=== PATIENT | male | born 1955 | race Caucasian/White ===

== ENCOUNTER → 2019-01-31 10:02 | Outpatient (CLI) | payer OTHER, SELFPAY ==
--- NOTE | 2019-01-31 | DI.RAD.S_ITS ---
PROCEDURE: XR RIBS RT MIN 3V W CXR 1V INDICATIONS: RIGHT RIB LOUIE TECHNIQUE: 2 views of the right ribs were acquired, along with a single view chest. COMPARISON: None. FINDINGS: Surgical changes and devices: None. Bones and chest wall: No fractures or dislocations. No suspicious bony lesions. Overlying soft tissues appear unremarkable. Lungs and pleura: No pleural effusions or pneumothorax. Small 3 mm nodular opacities project over the peripheral right lung. Lungs appear clear. Mediastinum: Mediastinal contours appear normal. Heart size is normal. IMPRESSION: 1. No acute right rib fracture identified radiographically. 2. Small 3 mm nodular opacities projecting over the peripheral right lung may represent pulmonary blood vessels seen on end, but consider CT of the chest for further evaluation if there is clinical concern for pulmonary nodules (such as a history of smoking). Dictated by: Terrance Srinivasan M.D. on 01/31/2019 at 18:12 Approved by: Terrance Srinivasan M.D. on 01/31/2019 at 18:16
== END ==
PROVIDERS: PCP Student in an Organized Health Care Education/Training Program; Visit Provider Chiropractor
DX: R07.81 Pleurodynia (principal)
CPT/HCPCS: 71101